=== PATIENT | female | born 1960 | race Two or more races ===

== ENCOUNTER 2016-04-03 10:05 | Emergency (ER) | payer OTHER ==
[~2016-04-03] VITALS: Ht 162.6 cm; Wt 67.3 kg
[~2016-04-03 10:05] MED LIST: ARTHROTEC 501 TABLET PO; FOLIC ACID1 MG PO; PLAQUENIL200 MG PO; PREDNISONE10 MG PO; TREXALL10 MG PO
[2016-04-03] MEDS ORDERED: ZESTRIL40 MG PO ×2 (10:36→10:39)
[2016-04-03] MEDS ORDERED: HUMIRA40 MG/0.8 SC (10:38)
[2016-04-03] MEDS ORDERED: MILLIPRED5 MG PO (10:38)
[2016-04-03 10:42] LABS: HEMATOCRIT 41.9 % (36.0-46.0); MCH 30.2 PG (29.0-34.0); MCHC 34.1 G/DL (30.0-36.0); MCV 88.6 FL (83-99); MEAN PLAT.VOLUME 10.2 uM^3 (9.5-12.4); PLATELET COUNT 202 K/uL (156-360); RBC DIS.WIDTH-CV 12.3 % (11.8-14.6); RBC DIS.WIDTH-SD 39.1 % (39-53); RED BLOOD COUNT 4.73 M/uL (3.80-5.20); WHITE BLOOD COUNT 7.5 K/uL (4.1-10.2)
[2016-04-03 10:55] LABS: CHLORIDE 106 mEq/L (99-109); POTASSIUM 3.9 mEq/L (3.7-5.4); SODIUM 140 mEq/L (136-147)
[2016-04-03 10:56] LABS: TROP-I INTERPRETATION NEGATIVE; TROPONIN-I < 0.01 ng/mL (0.0-0.30)
[2016-04-03 10:57] LABS: GLUCOSE 77 mg/dL (70-99)
[2016-04-03 10:58] LABS: ANION GAP 10 MEQ/L (2-14)
[2016-04-03 11:01] LABS: GFR ESTIMATE (CALCULATED) > 59 mL/min/
[2016-04-03 11:02] LABS: UREA NITROGEN (BUN) 7 mg/dL (9-23)
[2016-04-03 11:18] LABS: ADD MIUA? YES; BILIRUBIN NEGATIVE; BLOOD NEGATIVE; COLOR YELLOW ((YELLOW)); GLUCOSE (STRIP) NEGATIVE; KETONES NEGATIVE; LEUKOCYTES SMALL; NITRITE POSITIVE; PH, URINE 7.5 (5-8); PROTEIN (STRIP) TRACE; UROBILINOGEN 0.2 MG/DL (0.2-1.0)
[2016-04-03 11:36] LABS: EPITHELIAL CELLS RARE; MUCUS NONE SEEN; RED BLOOD CELLS NONE SEEN /HPF (0-5)
[2016-04-03 11:37] LABS: BACTERIA 3+; CASTS NONE SEEN /LPF; CRYSTALS NONE SEEN; UCUL ADDED? YES
[2016-04-03] MEDS ORDERED: CIPRO500 MG PO (13:06)
[2016-04-03] MEDS ORDERED: ROBITUSSIN AC,T10 ML PO (13:16)
[2016-04-03 14:26] VITALS: BP 135/70
== END 2016-04-03 14:41 | disposition home or self-care (01) ==
LOC: EME → EDBD 10:05 → EME 10:05
PROVIDERS: Emergency Medicine
DX: N39.0 Urinary tract infection, site not specified (principal); I95.1 Orthostatic hypotension; J34.89 Other specified disorders of nose and nasal sinuses; R05 Cough; M06.9 Rheumatoid arthritis, unspecified; Z79.52 Long term (current) use of systemic steroids
CPT/HCPCS: 71010; 80048; 81003; 84484; 85027; 87077; 87086; 87186; 93005; 99281; 99285; J0696; J7030; J7050